=== PATIENT | female | born 1960 | race Caucasian/White ===

== ENCOUNTER 2022-10-22 02:58 | Observation (INO) | payer OTHER ==
[~2022-10-22] VITALS: Ht 175.3 cm; Wt 111.2 kg
[2022-10-22] MEDS ORDERED: HYDROCHLOROTHIA25 MG PO (03:13)
[2022-10-22] MEDS ORDERED: CALCIUM500 M1 PO (03:13)
[2022-10-22 03:14] LABS: BASOPHILS 3.6 % (0-2); EOSINOPHILS 2.2 % (0-6); HEMATOCRIT 40.9 % (35.0-50.0); HEMOGLOBIN 13.6 g/dL (12.0-18.0); LYMPHOCYTES 43.5 % (24-44); MCHC 33.2 g/dl (30-36); MCV 90.3 fl (81-99); MONOCYTES 10.2 % (0-12); NEUTROPHILS 40.5 % (39-80); PLATELET COUNT 181 K/uL (140-440); RBC 4.53 M/ul (4.3-5.7); RDW 15.1 (10.5-15.0)
[2022-10-22] MEDS ORDERED: ADULT LOW DOSE81 MG PO (03:14)
[2022-10-22 03:30] LABS: ALBUMIN 3.7 g/dL (3.4-5.0); ANION GAP 11.4 (7-21); BILIRUBIN, TOTAL 0.7 ng/dL (0.2-1.0); BUN/CREATININE RATIO 25.66 (6.0-28.6); CALCIUM 9.5 mg/dL (8.5-10.1); CREATININE, SERUM 1.13 mg/dL (0.55-1.02); PROTEIN, TOTAL 7.4 g/dL (6.4-8.2)
[2022-10-22 03:31] LABS: POTASSIUM 2.4 mmol/L (3.5-5.1)
[2022-10-22 05:23] LABS: BILIRUBIN, URINE NEGATIVE (negative); BLOOD/HGB, URINE NEGATIVE (Negative); KETONE, URINE SMALL (Negative); LEUK ESTERASE, URINE SMALL (negative); NITRITE, URINE NEGATIVE (negative)
[2022-10-22 05:26] LABS: EPITHELIAL CELLS, URINE SQUAMOUS 1+ /lpf (0-1+); RED BLOOD CELLS, URINE 0-1 /hpf (0-5); REFLEX CULTURE, URINE No (No)
[2022-10-22 06:06] VITALS: BP 107/70
--- NOTE | 2022-10-22 06:22 | NUR ---
Pt arrived on the floor, at bedside. Assesed pt. R knee and ankel swollen and painful. Waiting for additional orders.
--- NOTE | 2022-10-22 06:32 | NUR ---
pt BROUGHT TO MEDSUR FLOOR FROM ED BY PRIMARY RN SKY. pt ORIENTED TO ROOM, DISCUSSED POC. VON IN ROOM. TELE IN PLACE. pt COMPLIANT WITH CARE, CALL LIGHT IN REACH.
--- NOTE | 2022-10-22 06:55 | NUR ---
CALL RECEIVED FROM CCU KAMERON KAUR REGARDING pt HEART RATE. HR UP TO 130 BUT DOESN'T SUSTAIN, PRIMARY RN SKY MADE AWARE. HR NOW 90'S-110, AFIB.
--- NOTE | 2022-10-22 07:35 | NUR ---
Patient resting in bed, alert and oriented x4. Patient has no acute distress. Patient's at bedside visiting. Personal supplies and call light within reach.
[2022-10-22 09:36] LABS: BUN/CREATININE RATIO 24.05 (6.0-28.6); CALCIUM 9.1 mg/dL (8.5-10.1); CREATININE, SERUM 0.79 mg/dL (0.55-1.02)
[2022-10-22 09:45] LABS: MAGNESIUM 2.1 mg/dL (1.8-2.4); PHOSPHORUS, INORGANIC 3.5 mg/dL (2.5-4.9)
[2022-10-22] MEDS ORDERED: VALTREX500 MG PO (09:45)
[2022-10-22] MEDS ORDERED: PROBIOTIC1 EAC1 PO (09:45)
--- NOTE | 2022-10-22 09:45 | NUR ---
MED REC COMPLETE
[2022-10-22 10:58] VITALS: BP 114/68
[2022-10-22 12:59] VITALS: BP 132/77
--- NOTE | 2022-10-22 14:00 | NUR ---
PATIENT RESTING IN BED, NO ACUTE DISTRESS. PATIENT REPORTS SHE WOULD LIKE TO TAKE A NAP. IV SITE REMAINS PATENT, FLUIDS INFUSING PER PROVIDER ORDER. FRESH WATER PROVIDED TO PATIENT. PT DENIES PAIN AND OR NAUSEA AT THIS TIME.
[2022-10-22 17:48] VITALS: BP 136/66
--- NOTE | 2022-10-22 18:06 | NUR ---
PATIENT AWAKE IN BED WATCHING TV, NO DISTRESS. PATIENT DRANK A PROTEIN SHAKE THIS AFTERNOON, OTHERWISE SMALL SIPS OF WATER THROUGHOUT THE DAY. PATIENT ENCOURAGED TO DRINK VITAMIN WATER AT BEDSIDE. IV SITE REMAINS PATENT, FLUIDS INFUSING PER PROVIDER ORDER. RIGHT LEG REMAINS ELEVATED ON PILLOW FOR COMFORT. HEART RATE TRENDING 60-80 BPM, NSR PER TELE.
--- NOTE | 2022-10-22 18:56 | NUR ---
PATIENT SAT ON EDGE OF BED WITH THIS NURSE AT SIDE. PATIENT REPORTS FEELING DIZZY WITH MOVEMENT. PATIENT SAT FOR A FEW MINUTES THEN REQUESTED TO BE REPOSITIONED BACK TO A SITTING POSITION IN THE BED. ICE PROVIDED TO RIGHT KNEE PER PATIENT REQUEST. ENCOURAGED PATIENT TO DRINK FLUIDS PROVIDER STOPPED HER IV FLUIDS, PT REPORTS HER UNDERSTANDING OF PLAN OF CARE. NO FURTHER NEEDS.
--- NOTE | 2022-10-22 19:13 | NUR ---
Patient in bed, HOB elevated, appears comfortable, Bedside report given by Destini.
--- NOTE | 2022-10-22 20:20 | NUR ---
TO RN STATION ANSKING IF HIS 'S HEART "SWITCHED TO NORMAL". EDUCATED pt's HEART DID CONVERT FROM AFIB TO NORMAL SINUS RHYTHM. NO ADDITIONAL NEEDS OR CONCERNS VERBALIZED.
[2022-10-22 20:40] VITALS: BP 135/81
--- NOTE | 2022-10-22 21:32 | EKG ---
[facility] [address] [place] [address] Signed Atrial fibrillation with rapid ventricular response Abnormal ECG No previous ECGs available Confirmed by Whit Dorantes MD () on 10/22/2022 9:32:21 PM Electronically Signed By: WHIT DORANTES MD 10/22/222131 PATIENT NAME: ADY NUGENT Electrocardiogram DATE OF : 62 PHYSICIAN: WHIT DORANTES MD REPORT #: [id number] REPORT IS CONFIDENTIAL AND NOT TO BE RELEASED WITHOUT AUTHORIZATION
--- NOTE | 2022-10-23 01:37 | NUR ---
Karey has been progressively feeling better with her dizziness. Sat up at edge of bed and visited with her and tolerated well. Talked with MD and patient given a dose of Meclizine. Continues to have some discomfort in right knee and right ankle from fall at home. Leg is elevated with ice applied and patient states that does help. CMS intact, VSS.
[2022-10-23 02:45] VITALS: BP 129/69
[2022-10-23 05:09] LABS: HEMATOCRIT 37.5 % (35.0-50.0); HEMOGLOBIN 12.6 g/dL (12.0-18.0); LYMPHOCYTES 35.9 % (24-44); MCH 30.4 (27-36); MCHC 33.6 g/dl (30-36); MCV 90.4 fl (81-99); MONOCYTES 10.2 % (0-12); NEUTROPHILS 50.9 % (39-80); PLATELET COUNT 167 K/uL (140-440); RBC 4.15 M/ul (4.3-5.7); RDW 14.9 (10.5-15.0)
[2022-10-23 05:28] LABS: ALBUMIN 3.4 g/dL (3.4-5.0); ALBUMIN/GLOBULIN RATIO 0.92 (1.1-2.4); BILIRUBIN, TOTAL 0.6 ng/dL (0.2-1.0); BUN/CREATININE RATIO 18.84 (6.0-28.6); CALCIUM 9.1 mg/dL (8.5-10.1); CREATININE, SERUM 0.69 mg/dL (0.55-1.02); MAGNESIUM 1.9 mg/dL (1.8-2.4); PROTEIN, TOTAL 7.1 g/dL (6.4-8.2)
--- NOTE | 2022-10-23 05:49 | NUR ---
Karey has slept on and off during the night. Her dizziness comes and goes in intensity. She is feeling like it is improving some. She has remained in Sinus rythmn through the night. No c/o SOB or CP, VS have remained stable, She continues to have right knee discomfort which mainly hurts with initial movement. Her ankly discomfort is improving, CMS intact, Assisted with stand by supervision to get up this am to stand at bedside to stretch and tolerated well. Is now resting with eyes closed, appears comfortable. call light in place.
[2022-10-23 06:44] VITALS: BP 134/85
--- NOTE | 2022-10-23 07:44 | NUR ---
PT ALERT AND INTERACTIVE AT TIME OF SHIFT REPORT, SITTING UP IN BED WATCHING TV. DENIES PAIN OR DIZZINESS. FRESH H20 AND CALL LIGHT AT BEDSIDE TABLE. PT DENIES NEEDS AT THIS TIME.
--- NOTE | 2022-10-23 10:06 | NUR ---
PT AMBULATES TO THE TOILET USING A FWW FOR ADDED STABILITY. REPORTS MINIMAL DIZZINESS AND AGREES HER RIGHT KNEE IS MUCH IMPROVED OVER YESTERDAY. STAYS UP IN THE CHAIR FOR MORNING MEAL THEN WORKS WITH P/T AND RETURNS TO RESTING IN BED. DR DORANTES IN TO SEE PT.
[2022-10-23 10:27] VITALS: BP 136/68
[2022-10-23] MEDS ORDERED: MECLIZINE HCL12.5 MG PO (10:45)
--- NOTE | 2022-10-23 10:55 | NUR ---
PT UP AMBULATING THE HALLS WITH P/T APPEARS STEADY ON HER FEET AND WELL TOLERATED
--- NOTE | 2022-10-23 11:22 | NUR ---
DICHARGE ORDERS IN. DISCHAREGE INSTRUCTIONS REVIEWED WITH PT. PT VERBALIZES UNDERSTANDING OF INSTRUCTIONS, MEDICATIONS, AND FOLLOW UP. PT REPORTS HER QUESTIONS HAVE BEEN ANSWERED. IV POTASSIUM INFUSION CONTINUES, PT WILL BE DISCHRAGED AFTER INFUSION IS COMPLETE. NO ADDITONAL REQUESTS OR COMPLAINTS AT THIS TIME. PTS PRIMARY RN UPDATED. CALL LIGHT WITHIN REACH. BED RAILS UP.
[2022-10-23 13:54] VITALS: BP 151/82
--- NOTE | 2022-10-23 13:58 | NUR ---
PATIENT SITTING UP IN BED TALKING WITH FAMILY IN ROOM. VITALS AND I&O'S CHARTED. CALL LIGHT IN REACH. NO FURTHER NEEDS AT THIS TIME.
--- NOTE | 2022-10-23 14:06 | NUR ---
PT HAS HAD DC INSTRUCTIONS WELL MEETING WITH PHARMACY. SHE DENIES QUESTIONS OR CONCERNS, AGREES SHE IS READY FOR DC. POTASSIUM IS FINISHED INFUSING DAUGHTER IS HERE TO DRIVE HER HOME
== END 2022-10-23 14:29 | disposition home or self-care (01) ==
LOC: ED 02:58 → MS 03:00
PROVIDERS: Internal Medicine; ADMIT Family Medicine; ATTEND Family Medicine
DX: I48.91 Unspecified atrial fibrillation (principal); R55 Syncope and collapse; E87.6 Hypokalemia; E83.42 Hypomagnesemia; I10 Essential (primary) hypertension; Z79.82 Long term (current) use of aspirin; Z79.899 Other long term (current) drug therapy
CPT/HCPCS: 36415; 70450; 71045; 71260; 73560; 73610; 80048; 80053; 81001; 83735; 84100; 84484; 85025; 85379; 93005; 93010; A9270; J1650; J3475; J3480; J3490; J7030; J7040; J7060